=== PATIENT | female | born 1935 | race Caucasian/White ===

== ENCOUNTER 2016-09-18 14:58 | Emergency (ER) | payer MEDICARE, OTHER, SELFPAY ==
--- NOTE | 2016-09-18 16:07 | EDM.PDOC ---
ED HPI GENERAL MEDICAL PROBLEM - General Chief Complaint: ENT Problem Stated Complaint: SORE THROAT Time Seen by Provider: 09/18/16 16:00 Source of Information: Reports: Patient History Limitations: Reports: No Limitations - History of Present Illness INITIAL COMMENTS - FREE TEXT/NARRATIVE: History of present illness: [80-year-old female presenting with complaints of pressure in her left ear as well as pressure down the side of her neck.] Review of systems: As per history of present illness and below otherwise all systems reviewed and negative. Past medical history: As per history of present illness and as reviewed below otherwise noncontributory. Surgical history: As per history of present illness and as reviewed below otherwise noncontributory. Social history: No reported history of drug or alcohol abuse. Family history: As per history of present illness and as reviewed below otherwise noncontributory. Physical exam: HEENT: Atraumatic, normocephalic, pupils reactive, negative for conjunctival pallor or scleral icterus, mucous membranes moist mild oropharyngeal erythema, left ear canal full of impacted serum and pressing against the TM. throat clear , neck supple, nontender, trachea midline. Lungs: Clear to auscultation, breath sounds equal bilaterally, chest nontender. Heart: S1S2, regular, negative for clicks, rubs, or JVD. Abdomen: Soft, nondistended, nontender. Negative for masses or hepatosplenomegaly. Negative for costovertebral tenderness. Pelvis: Stable nontender. Genitourinary: Deferred. Rectal: Deferred. Extremities: Atraumatic, negative for cords or calf pain. Neurovascular unremarkable. Neuro: Awake, alert, oriented. Cranial nerves II through XII unremarkable. Cerebellum unremarkable. Motor and sensory unremarkable throughout. Exam nonfocal. Patient is on chemotherapeutic agent and would benefit from a brief run of antibiotics secondary to immunosuppression. Diagnostics: [] Therapeutics: [] Impression: [Left serum and impaction, ON] Plan: [Antibiotic] Definitive disposition and diagnosis as appropriate pending reevaluation and review of above. left ear Pain Score (Numeric/FACES): 8 - Related Data Allergies Allergy/AdvReac Type Severity Reaction Status Date / Time shellfish derived Allergy Severe Airway Verified 09/18/16 15:25 Tightness egg Allergy Itching Verified 09/18/16 15:25 ciprofloxacin AdvReac Syncope Verified 09/18/16 15:25 escitalopram oxalate AdvReac Syncope Verified 09/18/16 15:25 [From Lexapro] yogart Allergy Severe Swelling Uncoded 09/18/16 15:25 A&W root beer Allergy Hives Uncoded 09/18/16 15:25 oxalate Allergy Other Uncoded 09/18/16 15:25 Home Meds: Home Meds Albuterol/Ipratropium [Combivent Respimat] 20 - 100 mcg INH QID 11/25/14 [ History] Ascorbic Acid [Vitamin C] 1 tab PO DAILY 11/25/14 [History] Aspirin [Halfprin] 81 mg PO BRK 11/25/14 [History] Budesonide [Pulmicort] 0.5 - 2 mg INH BID 11/25/14 [History] Multivitamin [Multivitamins] 1 tab PO DAILY 11/25/14 [History] Sertraline [Zoloft] 50 mg PO DAILY 11/25/14 [History] Vitamin E (dl, acetate) [Vitamin E] 1 cap PO DAILY 11/25/14 [History] Albuterol [Proventil Neb Soln] 1 ampule NEB TID 07/24/16 [History] Ergocalciferol (Vitamin D2) [Vitamin D] 400 unit PO DAILY 07/24/16 [History] Ferrous Sulfate [Iron] 325 mg PO DAILY 07/24/16 [History] Amoxicillin [IMW: Amoxicillin] 500 mg PO .THREE TIMES DAILY #30 cap 09/18/16 [Rx ] Carbamide Peroxide [Debrox 6.5% Otic Soln] 4 drop EARBOTH BID #1 bottle [Rx] Past Medical History Cardiovascular History: Reports: Heart Failure Respiratory History: Reports: COPD Other OB/BYN History: Tubal Litigation Musculoskeletal History: Reports: Osteoarthritis Neurological History: Reports: CVA Oncologic (Cancer) History: 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 - Past Surgical History HEENT Surgical History: Reports: Tonsillectomy Other Cardiovascular Surgeries/Procedures: Prior cardiac arrest during labor and delivery Respiratory Surgical History: Reports: Lung Biopsies GI Surgical History: Reports: Appendectomy Female Surgical History: Reports: D&C, Tubal Ligation Social & Family History - Family History Family Medical History: Noncontributory - Tobacco Use Smoking Status *Q: Never Smoker Years of Tobacco use: 45 Packs/Tins Daily: 0.8 Used Tobacco, but Quit: Yes Month Tobacco Last Used: 05/18/2008 Second Hand Smoke Exposure: Yes - Recreational Drug Use Recreational Drug Use: No - Living Situation & Occupation Living situation: Reports: , Assisted Living Occupation: Retired ED ROS GENERAL - Review of Systems Review Of Systems: See Below (History of present illness) ED EXAM, DIZZINESS - Physical Exam Exam: See Below (History of present illness) Course - Vital Signs Last Recorded V/S: Last Vital Signs Temp 36.9 C 09/18/16 15:25 Pulse 100 09/18/16 15:35 Resp 18 09/18/16 15:25 BP 110/56 L 09/18/16 15:35 Pulse Ox 94 L 09/18/16 15:25 Departure - Departure Time of Disposition: 16:13 Disposition: Home, Self-Care 01 Condition: good Clinical Impression: Otitis media, Impacted cerumen of left ear - Discharge Information Prescriptions: Amoxicillin [IMW: Amoxicillin] 500 mg PO .THREE TIMES DAILY #30 cap Carbamide Peroxide [Debrox 6.5% Otic Soln] 4 drop EARBOTH BID #1 bottle Forms: ED Department Discharge Additional Instructions: The following information is given to patients seen in the emergency department who are being discharged to home. This information is to outline your options for follow-up care. We provide all patients seen in our emergency department with a follow-up referral. The need for follow-up, as well as the timing and circumstances, are variable depending upon the specifics of your emergency department visit. If you don't have a primary care physician on staff, we will provide you with a referral. We always advise you to contact your personal physician following an emergency department visit to inform them of the circumstance of the visit and for follow-up with them and/or the need for any referrals to a consulting specialist. The emergency department will also refer you to a specialist when appropriate. This referral assures that you have the opportunity for follow-up care with a specialist. All of these measure are taken in an effort to provide you with optimal care, which includes your follow-up. Under all circumstances we always encourage you to contact your private physician who remains a resource for coordinating your care. When calling for follow-up care, please make the office aware that this follow-up is from your recent emergency room visit. If for any reason you are refused follow-up, please contact the [facility] Emergency Department at and asked to speak to the emergency department charge nurse. Take medication as directed Followup with PCP 1-2 day Return ED as needed as discussed
[2016-09-18] MEDS ORDERED: Carbamide Peroxide 6.5% Otic Soln 15 ML Bottle EARBOTH ONE (16:19)
[2016-09-18 16:37] VITALS: BP 108/59
== END 2016-09-18 16:30 | disposition home or self-care (01) ==
LOC: MW.ED 14:58
DX: H66.92 Otitis media, unspecified, left ear (principal); H61.22 Impacted cerumen, left ear; I50.9 Heart failure, unspecified; J44.9 Chronic obstructive pulmonary disease, unspecified; Z85.118 Personal history of other malignant neoplasm of bronchus and lung; Z90.49 Acquired absence of other specified parts of digestive tract; Z98.51 Tubal ligation status; Z98.890 Other specified postprocedural states; Z79.82 Long term (current) use of aspirin; Z79.899 Other long term (current) drug therapy; Z88.1 Allergy status to other antibiotic agents; Z88.8 Allergy status to other drugs, medicaments and biological substances; Z91.012 Allergy to eggs; Z91.013 Allergy to seafood; Z91.018 Allergy to other foods
CPT/HCPCS: 99282; 99283; A9270-GY